=== PATIENT | female | born 1945 | race Caucasian/White ===

== ENCOUNTER 2017-11-19 07:59 | Outpatient (CLI) | payer MEDICARE, OTHER ==
[2017-11-19] VITALS (10 sets, daily range): BP systolic 127–151; BP diastolic 50–85; PULSE 64–78; TEMP 98.3
[~2017-11-19] VITALS: Ht 162.6 cm; Wt 73.3 kg
[2017-11-19 08:27] LABS: HEMATOCRIT 40.6 % (37.0-47.0); HEMOGLOBIN 13.3 g/dl (12.5-16.0); MEAN CELL VOLUME 93 fl (80.0-100.0); MEAN CORPUSCULAR HEMOGLOBIN 30 pg (27.0-31.0); MEAN CORPUSCULAR HGB CONC 33 g/dl (33.0-37.0); MEAN PLATELET VOLUME 10.9 fl (7.4-10.4); PLATELET COUNT 319 K/mm3 (130-400); RED BLOOD COUNT 4.39 M/mm3 (4.10-5.30); REDCELL DISTRIBUTION WIDTH-CV 13.4 % (11.5-14.5)
[2017-11-19 08:31] LABS: CALCIUM 9.4 mg/dL (8.4-10.2); CREATININE, serum 0.72 mg/dL (0.52-1.25); POTASSIUM 4.1 mmol/L (3.4-5.0)
[2017-11-19 08:35] LABS: PROTHROMBIN TIME 11.3 SECONDS (9.7-12.8)
[2017-11-19] MEDS ORDERED: CARDIZEM120 MG PO (09:28)
[2017-11-19] MEDS ORDERED: CRESTOR 10MG10 MG PO (09:28)
[2017-11-19] MEDS ORDERED: LOFIBRA160 MG PO (09:29)
[2017-11-19] MEDS ORDERED: THE MEDICINE S200 M2 PO (09:29)
[2017-11-19] MEDS ORDERED: VITAMIN C500 MG PO (09:30)
[2017-11-19] MEDS ORDERED: ASPIRIN 81M81 MG/TA2 PO (09:30)
[2017-11-19] MEDS ORDERED: GLUCOSAMINE MSM1 TAB PO (09:31)
[2017-11-19] MEDS ORDERED: PROBIOTIC FORMU1 CAP PO (09:31)
[2017-11-19] MEDS ORDERED: TURMERIC500 MG PO (09:32)
[2017-11-19] MEDS ORDERED: MULTI VITAMINS1 TAB PO (09:33)
[2017-11-19] MEDS ORDERED: ALLEGRA 180MG180 MG PO (09:34)
== END 2017-11-19 16:04 | disposition home or self-care (01) ==
LOC: COL.VAS 07:59
PROVIDERS: Internal Medicine Cardiovascular Disease
DX: I08.1 Rheumatic disorders of both mitral and tricuspid valves (principal)
CPT/HCPCS: C1760; C1769; C1887; C1894; J0153; J1644; J2250; J3010; Q9967

== ENCOUNTER → 2017-11-21 | Outpatient (CLI) | payer MEDICARE, OTHER ==
[~2017-11-21] MED LIST: ALLEGRA 180MG180 MG PO; ASPIRIN 81M81 MG/TA2 PO; CARDIZEM120 MG PO; CRESTOR 10MG10 MG PO; GLUCOSAMINE MSM1 TAB PO; LOFIBRA160 MG PO; MULTI VITAMINS1 TAB PO; PROBIOTIC FORMU1 CAP PO; THE MEDICINE S200 M2 PO; TURMERIC500 MG PO; VITAMIN C500 MG PO
== END ==
LOC: COL.VAS 07:53
DX: I72.4 Aneurysm of artery of lower extremity (principal); G89.18 Other acute postprocedural pain

== ENCOUNTER → 2019-05-06 | Outpatient (CLI) | payer MEDICARE, OTHER ==
[~2019-05-06] MED LIST changes: +ASPIRIN E.C. 8181 MG PO; +BLACK SEED OIL; +IMDUR 30MG30 MG/TAB PO; +KRILL OIL 3001 EACH PO; +MAGNESIUM500 MG PO; +PRILOSEC10 MG PO; +PRINIVIL10 MG PO; +RANEXA 500MG T500 MG PO; +SELENIUM200 MC5
[2019-05-06 13:44] LABS: HEMATOCRIT 42.6 % (37.0-47.0); HEMOGLOBIN 14.1 g/dl (12.5-16.0); MEAN CELL VOLUME 90 fl (80.0-100.0); MEAN CORPUSCULAR HEMOGLOBIN 30 pg (27.0-31.0); MEAN CORPUSCULAR HGB CONC 33 g/dl (33.0-37.0); MEAN PLATELET VOLUME 11.1 fl (7.4-10.4); PLATELET COUNT 326 K/mm3 (130-400); RED BLOOD COUNT 4.74 M/mm3 (4.10-5.30); REDCELL DISTRIBUTION WIDTH-CV 13.1 % (11.5-14.5)
[2019-05-06 13:48] LABS: PROTHROMBIN TIME 11.8 SECONDS (9.7-12.8)
[2019-05-06 13:52] LABS: ANION GAP 11 mmol/L (7-16); BLOOD UREA NITROGEN 19 mg/dL (7-17); CALCIUM 9.5 mg/dL (8.4-10.2); CARBON DIOXIDE 22 mmol/L (22-30); CHLORIDE 109 mmol/L (98-107); CREATININE, serum 0.71 (0.52-1.25); GLUCOSE 98 mg/dL (74-106); POTASSIUM 4.1 mmol/L (3.4-5.0); SODIUM 142 mmol/L (137-145)
[2019-05-06 14:06] LABS: TROPONIN-I < 0.012 ng/mL (0.000-0.035)
== END ==
LOC: COL.LAB 13:06
PROVIDERS: Internal Medicine Interventional Cardiology
DX: I20.9 Angina pectoris, unspecified (principal)

== ENCOUNTER → 2019-06-11 | Outpatient (CLI) | payer MEDICARE, OTHER | LOC: COL.RAD 09:13 | DX: R06.02 Shortness of breath (principal) ==

== ENCOUNTER 2019-06-30 09:52 | Outpatient (RCR) | payer MEDICARE, OTHER | END 2019-09-28 | disposition home or self-care (01) | LOC: WSST | DX: F45.8 Other somatoform disorders (principal) ==

== ENCOUNTER → 2019-07-29 | Outpatient (CLI) | payer MEDICARE, OTHER | LOC: MC.RAD 11:00 | DX: Z12.31 Encounter for screening mammogram for malignant neoplasm of breast (principal); Z00.00 Encounter for general adult medical examination without abnormal findings ==

== ENCOUNTER → 2021-07-26 | Outpatient (CLI) | payer MEDICARE, OTHER ==
[~2021-07-26] MED LIST changes: +BLACK SEED OIL PO; +COZAAR 50MG50 MG/TAB PO; +CRESTOR20 MG PO; +MULTIPLE VITAMI1 TA5 PO; +NORCO 325 MG-51 TAB PO; +PROTONIX 40MG T40 MG PO
== END ==
LOC: COL.RAD 10:46
DX: K63.9 Disease of intestine, unspecified (principal); Z90.710 Acquired absence of both cervix and uterus
CPT/HCPCS: Q9967

== ENCOUNTER 2021-08-01 14:28 | Inpatient (IN) | payer MEDICARE, OTHER ==
[~2021-08-01] VITALS: Ht 162.7 cm; Wt 156.0 kg
[~2021-08-01 14:28] MED LIST changes: -BLACK SEED OIL PO; -COZAAR 50MG50 MG/TAB PO; -CRESTOR20 MG PO; -MULTIPLE VITAMI1 TA5 PO; -NORCO 325 MG-51 TAB PO; -PROTONIX 40MG T40 MG PO
[2021-08-15] VITALS (13 sets, daily range): BP systolic 93–154; BP diastolic 46–87; PULSE 70–99; TEMP 97.6–98.5
[2021-08-15 06:11] LABS: BASO % 0.4 % (0.0-2.0); EOS # 0.2 K/mm3 (0.0-0.7); EOS % 3.4 % (0-4.0); GRAN # 2.9 K/mm3 (1.4-6.5); GRAN % 54.3 % (42.2-75.2); HEMOGLOBIN 11.9 g/dl (12.5-16.0); LYMPH # 1.7 K/mm3 (1.2-3.4); LYMPH % 31.4 % (20.0-51.0); MEAN CELL VOLUME 94 fl (80.0-100.0); MEAN CORPUSCULAR HEMOGLOBIN 30 pg (27.0-31.0); MEAN CORPUSCULAR HGB CONC 32 g/dl (33.0-37.0); MEAN PLATELET VOLUME 10.8 fl (7.4-10.4); MONO # 0.5 K/mm3 (0.1-0.6); MONO % 10.1 % (1.7-9.3); PLATELET COUNT 334 K/mm3 (130-400); RED BLOOD COUNT 3.91 M/mm3 (4.10-5.30); REDCELL DISTRIBUTION WIDTH-CV 13.6 % (11.5-14.5)
[2021-08-15 06:12] LABS: HEMATOCRIT 36.8 % (37.0-47.0)
[2021-08-15] MEDS ORDERED: CRESTOR20 MG PO (06:23)
[2021-08-15] MEDS ORDERED: COZAAR 50MG50 MG/TAB PO (06:23)
[2021-08-15] MEDS ORDERED: ASPIRIN 81M81 MG/TA2 PO (06:24)
[2021-08-15] MEDS ORDERED: LOFIBRA160 MG PO (06:24)
[2021-08-15 06:27] LABS: ALBUMIN 3.9 gm/dL (3.4-4.8); BILIRUBIN,TOTAL 0.3 mg/dL (0.2-1.2); CALCIUM 9.4 mg/dL (8.4-10.2); CREATININE, serum 0.84 mg/dL (0.57-1.11); POTASSIUM 3.8 mmol/L (3.5-4.5); TOTAL PROTEIN 7.4 gm/dL (6.2-8.1)
[2021-08-15] MEDS ORDERED: THE MEDICINE S200 M2 PO (06:31)
[2021-08-15] MEDS ORDERED: PROTONIX 40MG T40 MG PO (06:33)
[2021-08-15] MEDS ORDERED: BLACK SEED OIL PO (06:34)
[2021-08-15] MEDS ORDERED: MULTIPLE VITAMI1 TA5 PO (06:34)
--- NOTE | 2021-08-15 13:24 | NUR ---
Pt a little more awake now. Not hungry for anything, but did take in a little water. Did assist pt to the commode. She did well with one assist. Had slight complaint of feeling nauseated. PRN given. at bedside
--- NOTE | 2021-08-15 16:50 | NUR ---
Pt having increase in pain. Voice is quivering when talking and pt is moaning during conversation. PRN pain medication given. Pt is has tolerated some jello and ice water. remains present in the room.
--- NOTE | 2021-08-15 17:45 | NUR ---
Pt feeling nauseated and feels as if she needs to walk. Pt felt that maybe she would feel better sitting up. Once pt was sitting up, she started to feel worse and light headed. Assisted pt back in bed. Pt appears to be anxious about surgery and activity. She has been up and did well. Informed her she needs to try and relax and that maybe the nausea and pain would subside some. Pt agreed this may help. She is aware that she cannot have zofran again until about 1920. PRN pain medication did help with the pain. Call light within reach.
--- NOTE | 2021-08-16 00:35 | NUR ---
ALERT AND OX4. PT IS VERY UPSET AT SHIFT CHANGE ROOM WAS DARK AND APPEARED TO BE ASLEEP. TEARFUL SAYING THAT SHE HAS CALLED TO VOID SEVERAL TIME W NO BODY TO COME TO ROOM TO ASST. DENIES PAIN BUT UPSET ABOUT NOT GETTING TYL ON TIME AND ALL OTHER MEDS, WHICH WERE ON TIME. C/O GAS PAIN TO SHOULDER ENC TO GET UP AND AMB, CHEW GUM. WANTS A STOOL SOFTNER SCARED TO GET CONSIPATED. CALLED DR SOLORZANO ORDER FOR COLACE BUT THEN REFUSED TO START TONIGHT. C/O NOT HAVING ANYTHING TO EAT OR DRINK BUT IS NOT HUNGRY. EXP DIET ADV TOLERATE. WANTS ONLY WATER TO DRINK BUT NOT TAP WATER. THIS RN WENT TO [employer] TO GET BOTTLE WATER FOR PT. PT STATES SHE DOES WANT SOMETHING TO HELP HER SLEEP TONIGHT. DR SOLORZANO CALLED AND EXPLAINED PT HAS BEEN HAVING ANIEXTY RELATED TO HER CARE, ATIVAN ORDERED X1. UPON TAKING VITALS PT STATES NO ONE HAS TAKEN MY VITALS ALL DAY. EXPLAINED THERE ARE SEVERAL RECORDED STATES THEN SOMEONE IS LIEING. SPOUSE CONTACTS THIS NURSE AND EXPRESSES HIS DISLIKE OF CARE IT HAS NOT BEEN IN A TIMELY MANOR. REASSURED IT WILL NOT HAPPEN THAT WAY THIS SHIFT AND ALL INTERVENTIONS DONE FOR HIS . PT WORRIED ABOUT BP BEING LOW. EXPLAINED IT CAN BE NORMAL FOR BP TO BE LOWER AFTER SURGERIES/ANESTHIA AND THAT I AM MONITORING OFTEN. TO CALL W C.O DIZZY, LIGHT HEADEDNESS. SPOUSE CALLS 4 X BEFORE MIDNIGHT FOR UPDATES AND KEEPS NURSE ON PHONE TO COMPLAIN OF CARES EARLIER IN SHIFT WHEN THIS NURSE WAS NOT HERE. CALL LIGHT WI REACH.
--- NOTE | 2021-08-16 03:43 | NUR ---
PT APPOLIGIZED STATES SHE NOW REMEMBERS ANTONIETTA ARGUETA CHECKING HER BP UP SHIFT CHANGE CHARTED. EXPLAINED TO HER THAT ANESTHIA MEDS CAN CAUSE AMNESIA.
[2021-08-16 04:24] VITALS: BP 102/52; PULSE 72; TEMP 98
--- NOTE | 2021-08-16 05:54 | NUR ---
RESTED REST OF THE NIGHT WITHOUT INCIDENT. NEEDS ARE MET.
--- NOTE | 2021-08-16 06:45 | NUR ---
awake and resting in bed, bedside shift report received from LINDA Acosta
[2021-08-16 07:11] VITALS: BP 115/64; PULSE 71; TEMP 98.1
--- NOTE | 2021-08-16 07:29 | NUR ---
Tyson, RN in to assist with care of patient, offered full liquids to patient and assisted her with ordering cream of wheat
[2021-08-16 08:00] LABS: CALCIUM 8.2 mg/dL (8.4-10.2); CREATININE, serum 0.94 mg/dL (0.57-1.11); MAGNESIUM 1.6 mg/dL (1.6-2.6); PHOSPHOROUS 4.5 mg/dL (2.3-4.7)
[2021-08-16 08:05] LABS: HEMATOCRIT 24.5 % (37.0-47.0); HEMOGLOBIN 7.6 g/dl (12.5-16.0)
--- NOTE | 2021-08-16 08:45 | NUR ---
had breakfast and tolerated well, assisted out of bed with student nurse and ambulated out in the ibanez and then back to room and into recliner, moves well and denies need for pain meds
--- NOTE | 2021-08-16 09:40 | NUR ---
Initial visit; Patient thanked Seat Scooper Machine for looking in on her, offering encouragement and prayer. Seat Scooper Machine offered God's blessings.
--- NOTE | 2021-08-16 09:49 | NUR ---
ZULEIKA met with the patient to discuss discharge plan. The patient lives in [place] with her , Scottie (ph#[phone]). She reports independence with ADLs and has a cane. The patient's PCP is Dr. Marianna Smith and she receives her medications from [facility]. She reports no difficulties obtaining her meds. The patient does not have a DPOA-HC and she was not interested in completing one at this time. The patient plans to return home with her upon discharge. No additional needs at this time. *Discharge plan: home with *
--- NOTE | 2021-08-16 10:20 | NUR ---
in chair and appears to be dozing, resp quiet and easy
[2021-08-16 12:00] VITALS: BP 102/53; PULSE 71; TEMP 98.2
--- NOTE | 2021-08-16 12:00 | NUR ---
is now back in bed and appears to be sleeping, lights off, eyes closed, resp quiet and easy
--- NOTE | 2021-08-16 13:05 | NUR ---
Pt had a great day. IV in left hand shows no signs of phlebitis or infiltration. Heart sounds are regular and lungs sounds are clear. Has walked multiple times in the hallway and had 3 small, loose, bowel movements. Pain is down and has been managed with scheduled Tylenol.
--- NOTE | 2021-08-16 13:30 | NUR ---
resting in bed, states having more gas after eating lunch, understands that is normal, at bedside denies needs
[2021-08-16 14:31] LABS: HEMATOCRIT 23.3 % (37.0-47.0); HEMOGLOBIN 7.4 g/dl (12.5-16.0)
[2021-08-16 15:30] VITALS: BP 135/65; PULSE 80; TEMP 98.7
--- NOTE | 2021-08-16 16:13 | NUR ---
ambulating in ibanez wiht as standby assist
--- NOTE | 2021-08-16 17:00 | NUR ---
c/o right shoulder pain, provided k-pad to assist with discomfort
--- NOTE | 2021-08-16 18:36 | NUR ---
up to bathroom and then back to bed after ambulatin anaya the ibanez, side shift report given to LINDA Lovett
--- NOTE | 2021-08-16 18:56 | NUR ---
RECEIVED CHANGE OF SHIFT REPORT FROM DAY SHIFT NURSE. C/O R SHOULDER PAIN WITH REPOSITIONING ON TO BACK/SUPINE IN BED, K PAD PLACED TO RIGHT SHOULDER. NO OTHER NEEDS REPORTED.
[2021-08-16 20:15] VITALS: BP 120/50; PULSE 91; TEMP 98.8
--- NOTE | 2021-08-16 20:46 | NUR ---
PATIENT UP INDEPENDENTLY IN ROOM WITH NO REPORTED PROBLEMS/CONCERNS. REFUSED OFFER OF ROXICODONE AT THIS TIME. INITIALLY ASKED FOR SLEEPING MED, INFORMED WOULD HAVE TO CALL PROVIDER FOR SLEEPING MED, IE MELATONIN THAT PATIENT REFUSED OFFER, AFTER INFORMED THAT ATIVAN THAT SHE WAS GIVEN LAST NIGHT WAS A ONE TIME DOSING. PATIENT DENIES ANY FURTHER NEEDS WITH NO FURTHER QUESTIONS OR REQUESTS. REFUSED HS MEDS, LOSARTAN AND MULTIVITAMIN AT THIS TIME.
--- NOTE | 2021-08-16 20:49 | NUR ---
REFUSED SCD AT THIS TIME, REPORTING THAT SCD INTERFERRED WITH BEING ABLE TO SLEEP LAST NIGHT.
[2021-08-16 23:24] VITALS: BP 129/57; PULSE 87; TEMP 98.8
--- NOTE | 2021-08-17 02:10 | NUR ---
DENIES ANY NEEDS AT THIS TIME. TOLERATING PO INTAKE, VOIDING WITH NO PROBLEMS. STILL COMPLAINS OF RIGHT SHOULDER PAIN WITH MOVEMENT.
[2021-08-17 04:12] VITALS: BP 134/59; PULSE 82; TEMP 98.5
--- NOTE | 2021-08-17 05:45 | NUR ---
PATIENT RESTING WITH EYES CLOSED. CONTINUES TO BE UP IN ROOM INDEPENDENTLY WITH NO PROBLEMS WELL NOT WEAR SCD DUE TO INDEPENDENT STATUS.
[2021-08-17 06:50] LABS: HEMATOCRIT 23.2 % (37.0-47.0); HEMOGLOBIN 7.5 g/dl (12.5-16.0)
[2021-08-17 07:00] LABS: CALCIUM 8.8 mg/dL (8.4-10.2); CREATININE, serum 0.76 mg/dL (0.57-1.11); POTASSIUM 4.1 mmol/L (3.5-4.5)
[2021-08-17 07:23] VITALS: BP 129/56; PULSE 85; TEMP 98.8
--- NOTE | 2021-08-17 07:26 | NUR ---
CHANGE OF SHIFT REPORT GIVEN TO DAY SHIFT NURSEHIRA RN.
[2021-08-17] MEDS ORDERED: NORCO 325 MG-51 TAB PO (09:25)
--- NOTE | 2021-08-17 09:51 | NUR ---
Patient resting in bed. Her supportive at bedside. Ambulated halls with patient & she felt weak. H&H results called to Dr. Jones, continue to hold Lovenox. also rounded & will continue to monitor & possibly dc later this afternoon if patient feeling better. Patient has a good understanding of her low fiber diet. Bowels hyperactive. She reports she had a small BM this am. Will monitor
[2021-08-17 12:50] VITALS: BP 155/50; PULSE 104; TEMP 97.5
--- NOTE | 2021-08-17 13:26 | NUR ---
Patient ready for discharge. Dr. Jones notified & orders obtained. She tolerated lunch & did well. She showered, Iv DC. Patient given all discharge instructions. We discussed low fiber diet. Incisions cares. activity restrictions reviewed. Patient wheeled out with all belongings. Her spouse taking her home.
== END 2021-08-17 13:33 | disposition home or self-care (01) | DRG 330 ==
LOC: INPTSU 08-15 05:36 → SURG 08-15 07:30
PROVIDERS: ADMIT Surgery
PROC: 8E0W4CZ Robotic Assisted Procedure of Trunk Region, Percutaneous Endoscopic Approach (ICD-10-PCS; 2021-08-15)
PROC: 0DTN4ZZ Resection of Sigmoid Colon, Percutaneous Endoscopic Approach (ICD-10-PCS; principal; 2021-08-15 07:30)
DX: K57.32 Diverticulitis of large intestine without perforation or abscess without bleeding (principal); N82.3 Fistula of vagina to large intestine
CPT/HCPCS: A4314; J2405; J2704; J3010; J7120

== ENCOUNTER → 2022-06-25 | Outpatient (CLI) | payer MEDICARE, OTHER ==
[~2022-06-25] MED LIST changes: +BLACK SEED OIL PO; +COZAAR 50MG50 MG/TAB PO; +CRESTOR20 MG PO; +MULTIPLE VITAMI1 TA5 PO; +NORCO 325 MG-51 TAB PO; +PROTONIX 40MG T40 MG PO
[2022-06-25 14:38] LABS: ALANINE AMINOTRANSFERASE 27 U/L (0-55); ALBUMIN 4.2 gm/dL (3.4-4.8); ALKALINE PHOSPHATASE 76 U/L (40-150); ANION GAP 12 mmol/L (7-16); AST,SGOT 23 U/L (5-34); BILIRUBIN,TOTAL 0.5 mg/dL (0.2-1.2); BLOOD UREA NITROGEN 26 mg/dL (10-20); CALCIUM 9.7 mg/dL (8.4-10.2); CARBON DIOXIDE 21 mmol/L (23-31); CHLORIDE 110 mmol/L (98-107); CHOLESTEROL 177 mg/dL (0-199); CHOLESTEROL RISK RATIO 3.5; CREATININE, serum 0.85 mg/dL (0.57-1.11); GLUCOSE 105 mg/dL (70-99); HDL CHOLESTEROL 50 mg/dL (40-60); LDL CHOLESTEROL 103 mg/dL; POTASSIUM 4.1 mmol/L (3.5-4.5); SODIUM 143 mmol/L (136-145); TOTAL PROTEIN 7.6 gm/dL (6.2-8.1); TRIGLYCERIDE 118 mg/dL (0-149); TROPONIN-I < 0.010 ng/mL (0.00-0.033)
== END ==
LOC: ZCOL.LAB 14:09
PROVIDERS: Nurse Practitioner
DX: R00.2 Palpitations (principal); R07.89 Other chest pain

== ENCOUNTER 2023-01-30 07:05 | Day surgery (SDC) | payer MEDICARE, OTHER ==
[~2023-01-30] VITALS: Ht 162.7 cm; Wt 77.2 kg
[2023-01-30] VITALS (7 sets, daily range): BP systolic 128–148; BP diastolic 52–80; PULSE 58–67; TEMP 96.8–98.1
[2023-01-30] MEDS ORDERED: BYSTOLIC5 MG PO (08:08)
[2023-01-30] MEDS ORDERED: CRESTOR40 MG PO (08:09)
[2023-01-30] MEDS ORDERED: BRILINTA90 MG PO (08:12)
[2023-01-30] MEDS ORDERED: GLUCOSAMIN 500 PO (08:13)
[2023-01-30] MEDS ORDERED: NORCO 325 MG-51 TAB PO (11:15)
--- NOTE | 2023-01-30 13:30 | NUR ---
1155 RECEIVED REPORT FROM PACU, LINDA SHAH. 1200 PT ARRIVAL IN [facility], ALERT AND ANSWERING QUESTIONS APPROPRIATELY. C/O RIGHT EYE IRRITATION. STERILE NORAML SALINE DROPS PROVIDED TO PT TO MOISTURIZE EYE. PT REPORTING SOME RELIEF. 1225 PT TOLERATED SIPS OF SPRITE. DECLINE OFFERED FOOD. 1308 DISCHARGE INSTRUCTIONS AND PT EDUCATION MATERIALS REVIEWED WITH PT AND HER . QUESTIONS INVITED AND ANSWERRED. 1310 CONTACTED JOSE ROBERTO PARKER CRNA TO UPDATE ON PT RIGHT EYE IRRITATION. 1317 PT AMBUATORY TO RESTROOM WITH STEADY GAIT. PT TO LOBBY VIA WHEEL CHAIR FOR RIDE HOME WITH VIA POV.
== END 2023-01-30 13:30 | disposition home or self-care (01) ==
LOC: SDCO 07:05
DX: K40.20 Bilateral inguinal hernia, without obstruction or gangrene, not specified as recurrent (principal); I25.10 Atherosclerotic heart disease of native coronary artery without angina pectoris; Z95.5 Presence of coronary angioplasty implant and graft; Z90.49 Acquired absence of other specified parts of digestive tract; Z79.02 Long term (current) use of antithrombotics/antiplatelets; Z87.891 Personal history of nicotine dependence
CPT/HCPCS: C1781; J0690; J1100; J2405; J2704; J3010; J7120